=== PATIENT | female | born 1980 | race African-American/Black ===

== ENCOUNTER 2023-10-13 19:14 | Emergency (ER) | payer SELFPAY ==
[~2023-10-13] VITALS: Ht 175.3 cm; Wt 70.0 kg
[2023-10-13 19:17] VITALS: O2SAT 99
[2023-10-13] MEDS: SODIUM CHLORIDE 0.9% 1,000 ML IV ONE (20:17)
[2023-10-13] MEDS: HYDRALAZINE 20MG/ML VIAL IV ONE (20:17)
[2023-10-13 21:01] LABS: BASOPHILS % 0.6 % (0.0-2.0); EOSINOPHILS % 0.3 % (0.0-5.0); HEMATOCRIT. 33.9 % (36.0-48.0); HEMOGLOBIN. 11.8 g/dL (12.0-16.0); LYMPHOCYTES % 9.9 % (20.0-50.0); MEAN CORPUSCULAR HEMOGLOBIN 31.6 pg (28.0-32.0); MEAN CORPUSCULAR HGB CONC 34.7 g/dL (31.0-37.0); MEAN PLATELET VOLUME 7.2 fl (7.4-10.4); MONOCYTES % 7.8 % (2.0-8.0); NEUTROPHILS % 81.4 % (40.0-76.0); PLATELET 225 x1000/uL (130-400); RED BLOOD CELL COUNT 3.73 mill/uL (4.2-5.4); RED CELL DISTRIBUTION WIDTH 15.8 % (11.6-14.6); WHITE BLOOD COUNT 9.4 x1000/uL (4.5-11.0)
[2023-10-13 21:07] LABS: CHLORIDE 100 mEq/L (98-107); POTASSIUM 3.5 mEq/L (3.5-5.1); SODIUM 132 mEq/L (136-145)
[2023-10-13 21:08] LABS: CARBON DIOXIDE 25 mEq/L (21-32)
[2023-10-13 21:09] LABS: CALCIUM 9.9 mg/dL (8.7-10.4)
[2023-10-13 21:14] LABS: GLUCOSE 134 mg/dL (70-105); TROPONIN I HIGH SENSITIVITY 11 ng/L (3.0-34); UREA NITROGEN BLOOD 14 mg/dL (9-23)
[2023-10-13] MEDS: LORAZEPAM 1MG TABLET PO ONE (21:23)
[2023-10-13 21:40] VITALS: BP 107/51; PULSE 108; RESP 14; TEMP 99
== END 2023-10-13 22:23 | disposition home or self-care (01) ==
LOC: ER 19:14
DX: I10 Essential (primary) hypertension (principal); F41.9 Anxiety disorder, unspecified; R00.0 Tachycardia, unspecified
CPT/HCPCS: 80048; 85025; 84484; 36415; 93005; 96374; 99284; J0360; J7030; Z7610 ×2